=== PATIENT | male | born 1965 | race African-American/Black ===

== ENCOUNTER 2017-12-29 18:39 | Emergency (ER) | payer OTHER ==
[~2017-12-29] VITALS: Ht 193 cm; Wt 107.0 kg
[2017-12-29] MEDS ORDERED: ULTRAM50 MG PO (20:44)
[2017-12-29] MEDS ORDERED: KEFLEX500 MG PO (20:44)
[2017-12-29 20:54] VITALS: BP 155/95
== END 2017-12-29 20:55 | disposition home or self-care (01) ==
LOC: EME 18:39
PROC: 0H91XZZ Drainage of Face Skin, External Approach (ICD-10-PCS; principal; 2017-12-29)
DX: L72.3 Sebaceous cyst (principal); W22.8XXA Striking against or struck by other objects, initial encounter; Y99.0 Civilian activity done for income or pay; F17.200 Nicotine dependence, unspecified, uncomplicated
CPT/HCPCS: 99281; 99284